=== PATIENT | male | born 1940 | race Caucasian/White ===

== ENCOUNTER → 2019-08-26 12:07 | Outpatient (CLI) | payer MEDICARE, SELFPAY ==
[2019-08-26 14:10] LABS: Blood Urea Nitrogen 18 mg/dl (9-20); Estimated Glomerular Filt Rate 72 ml/min (>60); GFR (African American) 87 ML/MIN (>60)
== END ==
PROVIDERS: Visit Provider Family Medicine
DX: G40.909 Epilepsy, unspecified, not intractable, without status epilepticus (principal)
CPT/HCPCS: 36415; 82565; 84520

== ENCOUNTER → 2019-09-13 11:45 | Outpatient (CLI) | payer MEDICARE, SELFPAY ==
--- NOTE | 2019-09-13 12:03 | CT_ITS ---
PROCEDURE: CT HEAD/BRAIN WO/W CON CLINICAL INDICATION: PARTIAL SEIZURES Nocturnal seizures COMPARISON: No exams were available for comparison TECHNIQUE: IV Contrast: 100ML OPITRAY 320 Axial images obtained. All CT scans at the facility use one or more dose reduction, viz: automated exposure control, ma/kV adjustment per patient size (including targeted exams where dose is matched to indication, i.e. head), or iterative reconstruction technique. FINDINGS: No midline shift, mass effect, intracranial hemorrhage, hydrocephalus, or extra-axial fluid collection is evident. The calvarium has an unremarkable appearance. No mastoid effusion . Mild mucosal thickening ethmoid sinuses IMPRESSION: No acute intracranial findings Dictated by: Aram Christine MD 09/13/2019 18:15 Electronically signed by Aram Christine MD in [place] 09/13/2019 18:15
[2019-09-13 12:23] LABS: Blood Urea Nitrogen 15 mg/dl (9-20); Estimated Glomerular Filt Rate 65 ml/min (>60); GFR (African American) 78 ML/MIN (>60)
== END ==
PROVIDERS: Visit Provider Family Medicine
DX: G40.109 Localization-related (focal) (partial) symptomatic epilepsy and epileptic syndromes with simple partial seizures, not intractable, without status epilepticus (principal)
CPT/HCPCS: 36415; 70470; 82565; 84520; Q9967

== ENCOUNTER → 2019-10-13 09:31 | Outpatient (CLI) | payer MEDICARE, SELFPAY ==
[2019-10-13 09:34] LABS: MANUAL DIFFERENTIAL MANUAL DIFFERENTIAL (MANUAL DIFF)
[2019-10-13 10:18] LABS: Basophils % 0.5 % (0.1-2.0); Eosinophils # 0.3 K/mm3 (0.0-0.4); Eosinophils % 4.6 % (0.1-12.0); Hemoglobin 14.8 g/dL (14.1-18.0); Lymphocytes # 1.4 K/mm3 (0.7-4.5); Lymphocytes % 22.5 % (10-50); Mean Corpuscular HGB Conc 34.5 g/dL (31.8-35.4); Mean Corpuscular Hemoglobin 31.5 pg (27.0-31.2); Mean Corpuscular Volume 91.3 fl (80-94); Mean Platelet Volume 7.8 fl (7.4-10.4); Monocytes # 0.4 K/mm3 (0.1-1.0); Monocytes % 5.9 % (1.7-9.3); Neutrophils % 66.5 % (37.0-80.0); Platelet Count 147 K/mm3 (142-424); Red Blood Count 4.72 M/mm3 (4.60-6.20); Red Cell Distribution Width 14.5 % (11.5-17.5)
[2019-10-13 10:19] LABS: Alanine Aminotransferase 15 U/L (12-78); Albumin Level 4.2 g/dl (3.5-5.0); Albumin/Globulin Ratio 1.4 (1.1-1.8); Alkaline Phosphatase 68 U/L (38-126); Aspartate Amino Transferase 21 U/L (17-59); Bilirubin,Total 0.8 mg/dl (0.2-1.3); Blood Urea Nitrogen 16 mg/dl (9-20); Calcium 9.7 mg/dl (8.4-10.2); Carbon Dioxide 29 mmol/L (22.0-30.0); Chloride 106 mmol/L (98-107); Estimated Glomerular Filt Rate 65 ml/min (>60); GFR (African American) 78 ML/MIN (>60); Globulin 3.1 g/dL (1.3-3.2); Glucose 110 mg/dl (74-100); Sodium 140 mmol/L (136-145); Total Protein,Serum 7.3 g/dl (6.3-8.2)
[2019-10-13 10:51] LABS: Thyroid Stimulating Hormone 0.72 uIU/mL (0.465-4.68)
[2019-10-13 11:05] LABS: Erythrocyte Sedimentation Rate 10 mm/hr (0-20)
[2019-10-13 11:19] LABS: Eosinophils % 6 % (0-3); Lymphocytes % 22 % (10-50); Monocytes % 8 % (2-9); Neutrophils % 64 % (42-76); Platelet Estimate Normal; RBC Morphology Normal; Total Cells Counted 100
[2019-10-14 18:02] LABS: Folate 7.5 ng/mL (>3.0); Vitamin B12 278 pg/mL (232-1245)
== END ==
PROVIDERS: Visit Provider Nurse Practitioner Family
DX: R56.9 Unspecified convulsions (principal); R25.9 Unspecified abnormal involuntary movements; R53.1 Weakness; D64.9 Anemia, unspecified
CPT/HCPCS: 36415; 80053; 82607; 82746; 84443; 85007; 85014; 85018; 85048; 85049; 85651

== ENCOUNTER → 2019-10-18 10:36 | Outpatient (CLI) | payer MEDICARE, SELFPAY ==
--- NOTE | 2019-10-18 10:37 | MR_ITS ---
PROCEDURE: MR HEAD/BRAIN WO/W CON CLINICAL INDICATION: seizures When sleeping at night patient has seizure like jerking. After seizure will have weakness on right side of body. Symptoms [id number]. COMPARISON: CT CT HEAD/BRAIN WO/W CON from 09/13/2019 TECHNIQUE: Routine multiplanar multi echo sequences are performed without and with gadolinium enhancement. FINDINGS: No midline shift, mass effect, intracranial hemorrhage, or hydrocephalus. No enhancing lesions. No evidence of acute infarction. The cerebellopontine angles, cerebellum, and brainstem have an unremarkable appearance. There are involutional changes of age with mild cerebral atrophy and only minimal periventricular T2 hyperintensities. There is mild mucosal thickening of the ethmoid sinuses. No mastoid effusion. Incidental note is made a partial empty sella. The optic chiasm is unremarkable as is the craniocervical junction. There is bulging disc with degenerative disc disease at C2-C3 with narrowing of the canal at that level. There does appear to be some cord impingement with questionable increased T2 signal of the proximal cord. This is on the edge of the imaging not adequately evaluated. The canal at this area measures approximately 7 mm. IMPRESSION: 1. No acute intracranial findings. 2. Canal stenosis at C2-C3 with some mild cord impingement and some questionable increased T2 signal of the cord at the C3 level. This may be better evaluated with dedicated MRI of the cervical spine if clinically warranted. 3. Mild sinus disease Dictated b Aram Christine MD 10/19/2019 11:04 Aram Christine MD in [facility] 10/19/2019 11:04
== END ==
PROVIDERS: PCP Family Medicine; Visit Provider Specialist
DX: G31.84 Mild cognitive impairment of uncertain or unknown etiology (principal); R25.9 Unspecified abnormal involuntary movements; R53.1 Weakness; R56.9 Unspecified convulsions
CPT/HCPCS: 70553; A9576

== ENCOUNTER → 2019-10-31 09:15 | Outpatient (CLI) | payer MEDICARE, SELFPAY ==
--- NOTE | 2019-10-31 09:15 | MR_ITS ---
PROCEDURE: MR CERVICAL SPINE WO CON CLINICAL INDICATION: cervical spinal cord impingement Rt arm jerking and numbness. 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 No prior. COMPARISON: No exams were available for comparison TECHNIQUE: Standard multiplanar multiecho sequences are performed without contrast. 3-D MIP and myelographic images are also rendered and reviewed FINDINGS: There is normal alignment. Motion artifact does obscure fine detailed decreasing the signal to noise ratio. The craniocervical junction has an unremarkable appearance. There is 3 mm anterolisthesis of C2 on C3. Canal stenosis is present at C2-C3 measuring 8 mm with some mild impingement upon the cord anteriorly. C3-C4: There has been prior fusion at C3-C4 with anterior bone plate and artifact noted. There is canal stenosis with hypertrophic changes along the posterior aspect of C3-C4 which is eccentric toward the right. There is canal stenosis with flattening of the cord at this level and there is bilateral lateral recess narrowing. The canal measures approximately 8 mm. There is a small area of increased T2 signal within the central aspect of the cord at this level. This measures approximately 4 mm and could be due to an area of encephalomalacia, gliosis, or a small syrinx. C4-C5: Degenerate disc disease with facet and uncovertebral hypertrophy with bilateral lateral recess and foraminal narrowing. There is canal stenosis at 10 mm. C5-C6: Degenerate disc disease. There is a small left paracentral disc protrusion C6-C7: Degenerate disc disease with bulging disc. There is borderline narrowing of the canal. C7-T1: There is bilateral foraminal narrowing from uncovertebral and facet hypertrophy. There is mild wedging of T1 but appears chronic. IMPRESSION: 1. Somewhat limited exam secondary to motion artifact. 2. C3-C4: There has been prior fusion at C3-C4 with anterior bone plate and artifact noted. There is canal stenosis with hypertrophic changes along the posterior aspect of C3-C4 which is eccentric toward the right. There is canal stenosis with flattening of the cord at this level and there is bilateral lateral recess narrowing. The canal measures approximately 8 mm. There is a small area of increased T2 signal within the central aspect of the cord at this level. This measures approximately 4 mm and could be due to an area of encephalomalacia, gliosis, or a small syrinx. 3. C4-C5: Degenerate disc disease with facet and uncovertebral hypertrophy with bilateral lateral recess and foraminal narrowing. There is canal stenosis at 10 mm. 4. C5-C6: Degenerate disc disease. There is a small left paracentral disc protrusion 5. C6-C7: Degenerate disc disease with bulging disc. There is borderline narrowing of the canal. 6. C7-T1: There is bilateral foraminal narrowing from uncovertebral and facet hypertrophy. There is mild wedging of T1 but appears chronic. Dictated by: Aram Christine MD 11/01/2019 12:49 Aram Christine MD in [place] 11/01/2019 12:49
== END ==
PROVIDERS: PCP Family Medicine; Visit Provider Specialist
DX: G95.20 Unspecified cord compression (principal); R90.89 Other abnormal findings on diagnostic imaging of central nervous system; M54.2 Cervicalgia
CPT/HCPCS: 72141; 76376

== ENCOUNTER → 2021-01-03 09:35 | Outpatient (CLI) | payer MEDICARE, SELFPAY ==
--- NOTE | 2021-01-03 09:44 | CT_ITS ---
PROCEDURE: CT ABDOMEN PELVIS WO CON CLINICAL INDICATION: ABD PAIN COMPARISON: No exams were available for comparison TECHNIQUE: Axial images obtained with sagittal and coronal reformats. All CT scans at the facility use one or more dose reduction, viz: automated exposure control, ma/kV adjustment per patient size (including targeted exams where dose is matched to indication, i.e. head), or iterative reconstruction technique. FINDINGS: LOWER THORAX: There is a 4 mm nodule in the right lower lobe in the lung base and a 4 mm subpleural nodule in the left lower lobe anteriorly. Minimal thickening of the pericardium anteriorly. There is an enlarged retrocrural lymph node on the right at 1.5 1 cm ABDOMEN & PELVIS: No focal liver lesion on this unenhanced exam. There is a 10 x 6 mm hypodensity in the spleen inferiorly and a 6 mm hypodensity in the spleen posteriorly. There is mild splenomegaly at 14 cm. The adrenal glands and pancreas have an unremarkable unenhanced appearance. There is mild bilateral hydronephrosis and hydroureter. No definite ureteral or renal calculi are evident. There is a small right renal cyst laterally at 15 mm. There is moderate retroperitoneal adenopathy with nodes measuring 2 2.8 x 2.3 cm in the aortocaval region There is a moderate amount of retained colonic feces with colonic diverticulosis in the sigmoid colon. There is a small right inguinal hernia containing. No evidence of appendicitis. The prostate is enlarged measuring 8.7 x 7.5 x 5.6 cm cephalad caudad, transverse, and AP. The largest component of the prostate is along its superior aspect and is slightly displacing the urinary bladder anteriorly and to the right causing bilateral distal ureteral obstruction. This could even be related to a bladder cancer extending posteriorly. There are few small lymph nodes in the Yanna prostatic region. There is an enlarged node in the presacral region at 2.3 1.3 cm. Diffuse ill-defined blastic involvement pelvis and entire lumbar spine as well as multiple ribs consistent with metastatic disease. 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 There is compression or invasion of the urinary bladder with bilateral hydronephrosis. The bladder is not significantly distended. Alternatively, there could be a neoplasm of the urinary bladder as well. Suggest urology consult for further evaluation. There is mild retroperitoneal and pelvic adenopathy consistent with lymph node metastasis. Hypodensities of the spleen which are nonspecific. Stability may be confirmed with continued follow-up Constipation Dictated by: Aram Christine MD 01/04/2021 09:44 Aram Christine MD in [place] 01/04/2021 09:44
== END ==
PROVIDERS: PCP Family Medicine; Visit Provider Family Medicine
DX: R10.9 Unspecified abdominal pain (principal)
CPT/HCPCS: 74176

== ENCOUNTER 2021-02-18 08:14 | Outpatient (CLI) | payer MEDICARE, SELFPAY ==
[2021-02-18] VITALS (12 sets, daily range): BP systolic 101–131; BP diastolic 45–75; PULSE 68–74; RESP 20–72; TEMP 36.1–36.9; O2SAT 95–97; BMI 21.8
[2021-02-18 09:07] LABS: Hematocrit 20.4 % (42.0-52.0); Hemoglobin 6.6 g/dL (14.1-18.0)
[2021-02-18 14:28] LABS: Hematocrit 22.7 % (42.0-52.0)
[2021-02-18 14:38] LABS: Hemoglobin 7.8 g/dL (14.1-18.0)
--- NOTE | 2021-02-18 15:34 | PC.NURSE ---
Angely Tee called RN at 0842 to report HGB of 6.6 and HCT 20.4. RN repeated and verified pt name, , and lab value. Results called to Matt Patino MD. No new orders recieved.
== END 2021-02-18 14:30 | disposition home or self-care (01) ==
LOC: INF 08:16
PROVIDERS: PCP Family Medicine; Visit Provider Internal Medicine Medical Oncology
DX: C61 Malignant neoplasm of prostate (principal)
CPT/HCPCS: 36415; 36430; 85014; 85018; 86850; P9016

== ENCOUNTER → 2021-02-25 11:53 | Outpatient (CLI) | payer MEDICARE, SELFPAY ==
[2021-02-25 12:20] LABS: Basophils % 0.5 % (0.1-2.0); Eosinophils # 0.1 K/mm3 (0.0-0.4); Eosinophils % 3.6 % (0.1-12.0); Hematocrit 25.1 % (42.0-52.0); Lymphocytes # 0.9 K/mm3 (0.7-4.5); Lymphocytes % 25.9 % (10-50); Mean Corpuscular HGB Conc 31.9 g/dL (31.8-35.4); Mean Corpuscular Hemoglobin 29.7 pg (27.0-31.2); Mean Corpuscular Volume 93.3 fl (80-94); Mean Platelet Volume 7.3 fl (7.4-10.4); Monocytes # 0.3 K/mm3 (0.1-1.0); Monocytes % 8.1 % (1.7-9.3); Neutrophils # 2.2 K/mm3 (1.8-7.8); Neutrophils % 61.9 % (37.0-80.0); Platelet Count 187 K/mm3 (142-424); Red Blood Count 2.69 M/mm3 (4.60-6.20); Red Cell Distribution Width 18.7 % (11.5-17.5); White Blood Count 3.6 K/mm3 (4.8-10.8)
== END ==
PROVIDERS: Visit Provider Internal Medicine Medical Oncology
DX: C61 Malignant neoplasm of prostate (principal)
CPT/HCPCS: 36415; 85025

== ENCOUNTER → 2021-03-28 12:48 | Outpatient (CLI) | payer MEDICARE, SELFPAY ==
[2021-03-28 13:19] LABS: Basophils % 0.7 % (0.1-2.0); Eosinophils # 0.2 K/mm3 (0.0-0.4); Eosinophils % 5.2 % (0.1-12.0); Hematocrit 23.7 % (42.0-52.0); Hemoglobin 7.4 g/dL (14.1-18.0); Lymphocytes # 0.7 K/mm3 (0.7-4.5); Lymphocytes % 22.8 % (10-50); Mean Corpuscular HGB Conc 31.3 g/dL (31.8-35.4); Mean Corpuscular Hemoglobin 30.2 pg (27.0-31.2); Mean Corpuscular Volume 96.5 fl (80-94); Mean Platelet Volume 7.9 fl (7.4-10.4); Monocytes # 0.2 K/mm3 (0.1-1.0); Monocytes % 7.1 % (1.7-9.3); Neutrophils # 2.1 K/mm3 (1.8-7.8); Neutrophils % 64.2 % (37.0-80.0); Platelet Count 229 K/mm3 (142-424); Red Blood Count 2.46 M/mm3 (4.60-6.20); Red Cell Distribution Width 16.6 % (11.5-17.5); White Blood Count 3.3 K/mm3 (4.8-10.8)
== END ==
PROVIDERS: PCP Family Medicine; Visit Provider Internal Medicine Medical Oncology
DX: C61 Malignant neoplasm of prostate (principal)
CPT/HCPCS: 36415; 85025

== ENCOUNTER 2021-03-31 08:35 | Outpatient (CLI) | payer MEDICARE, SELFPAY ==
[2021-03-31] VITALS (7 sets, daily range): BP systolic 129–157; BP diastolic 66–76; PULSE 66–74; RESP 16–18; TEMP 36.8–37.4; O2SAT 98–100; BMI 21.7
--- NOTE | 2021-03-31 12:40 | PC.NURSE ---
Pt wouldn't stay for 1 hour post vital. He was concerned it it would snow and he'd have trouble getting home. [place] [facility] [place]
== END 2021-03-31 12:40 | disposition home or self-care (01) ==
LOC: INF 08:36
PROVIDERS: PCP Family Medicine; Visit Provider Internal Medicine Medical Oncology
DX: D64.9 Anemia, unspecified (principal)
CPT/HCPCS: 36430; 86850; P9016

== ENCOUNTER → 2021-04-08 13:23 | Outpatient (CLI) | payer MEDICARE, SELFPAY ==
[2021-04-08 13:59] LABS: Basophils % 0.6 % (0.1-2.0); Eosinophils # 0.1 K/mm3 (0.0-0.4); Eosinophils % 3.6 % (0.1-12.0); Hematocrit 28.3 % (42.0-52.0); Hemoglobin 9.2 g/dL (14.1-18.0); Lymphocytes # 0.7 K/mm3 (0.7-4.5); Lymphocytes % 19.4 % (10-50); Mean Corpuscular HGB Conc 32.6 g/dL (31.8-35.4); Mean Corpuscular Hemoglobin 30.5 pg (27.0-31.2); Mean Corpuscular Volume 93.4 fl (80-94); Mean Platelet Volume 7.6 fl (7.4-10.4); Monocytes # 0.4 K/mm3 (0.1-1.0); Monocytes % 9.6 % (1.7-9.3); Neutrophils # 2.5 K/mm3 (1.8-7.8); Neutrophils % 66.8 % (37.0-80.0); Platelet Count 275 K/mm3 (142-424); Red Blood Count 3.03 M/mm3 (4.60-6.20); Red Cell Distribution Width 15.9 % (11.5-17.5); White Blood Count 3.8 K/mm3 (4.8-10.8)
== END ==
PROVIDERS: PCP Family Medicine; Visit Provider Internal Medicine Medical Oncology
DX: C61 Malignant neoplasm of prostate (principal)
CPT/HCPCS: 36415; 85025

== ENCOUNTER 2021-05-17 08:24 | Outpatient (CLI) | payer MEDICARE, SELFPAY ==
[2021-05-17 08:24] VITALS: BMI 20.2
[2021-05-17 09:09] LABS: Basophils % 0.5 % (0.1-2.0); Eosinophils # 0.1 K/mm3 (0.0-0.4); Eosinophils % 1.7 % (0.1-12.0); Hematocrit 31.8 % (42.0-52.0); Hemoglobin 10.1 g/dL (14.1-18.0); Lymphocytes # 0.7 K/mm3 (0.7-4.5); Lymphocytes % 12.2 % (10-50); Mean Corpuscular HGB Conc 31.8 g/dL (31.8-35.4); Mean Corpuscular Volume 94.3 fl (80-94); Mean Platelet Volume 7.9 fl (7.4-10.4); Monocytes # 0.4 K/mm3 (0.1-1.0); Monocytes % 6.4 % (1.7-9.3); Neutrophils # 4.6 K/mm3 (1.8-7.8); Neutrophils % 79.3 % (37.0-80.0); Platelet Count 231 K/mm3 (142-424); Red Blood Count 3.38 M/mm3 (4.60-6.20); Red Cell Distribution Width 15.7 % (11.5-17.5); White Blood Count 5.8 K/mm3 (4.8-10.8)
--- NOTE | 2021-05-17 09:30 | PC.NURSE ---
NO TRANSFUSION NEEDED BASED ON ORDERS;
== END 2021-05-17 09:30 | disposition home or self-care (01) ==
LOC: INF 08:27
PROVIDERS: PCP Family Medicine; Visit Provider Internal Medicine Medical Oncology
DX: D50.0 Iron deficiency anemia secondary to blood loss (chronic) (principal)
CPT/HCPCS: 85025

== ENCOUNTER → 2021-06-18 13:51 | Outpatient (CLI) | payer MEDICARE, SELFPAY ==
[2021-06-18 14:55] LABS: Basophils % 0.6 % (0.1-2.0); Eosinophils # 0.1 K/mm3 (0.0-0.4); Eosinophils % 1.3 % (0.1-12.0); Hematocrit 25.7 % (42.0-52.0); Lymphocytes # 0.4 K/mm3 (0.7-4.5); Mean Corpuscular HGB Conc 31.3 g/dL (31.8-35.4); Mean Corpuscular Hemoglobin 30.5 pg (27.0-31.2); Mean Corpuscular Volume 97.6 fl (80-94); Mean Platelet Volume 8.1 fl (7.4-10.4); Monocytes # 0.3 K/mm3 (0.1-1.0); Monocytes % 6.6 % (1.7-9.3); Neutrophils # 3.3 K/mm3 (1.8-7.8); Neutrophils % 82.5 % (37.0-80.0); Platelet Count 270 K/mm3 (142-424); Red Blood Count 2.64 M/mm3 (4.60-6.20); Red Cell Distribution Width 17.8 % (11.5-17.5)
[2021-06-18 15:14] LABS: Alanine Aminotransferase 8 U/L (12-78); Albumin Level 2.8 g/dl (3.5-5.0); Albumin/Globulin Ratio 1.1 (1.1-1.8); Alkaline Phosphatase 571 U/L (38-126); Anion Gap 6.6 mEq/L (5-15); Aspartate Amino Transferase 25 U/L (17-59); Blood Urea Nitrogen 25 mg/dl (9-20); Calcium 7.3 mg/dl (8.4-10.2); Carbon Dioxide 26 mmol/L (22.0-30.0); Chloride 107 mmol/L (98-107); Estimated Glomerular Filt Rate 109 ml/min (>60); GFR (African American) 132 ML/MIN (>60); Globulin 2.6 g/dL (1.3-3.2); Glucose 117 mg/dl (74-100); Potassium 5.6 mmoL/L (3.5-5.1); Sodium 134 mmol/L (136-145); Total Protein,Serum 5.4 g/dl (6.3-8.2)
== END ==
PROVIDERS: Visit Provider Internal Medicine Medical Oncology
DX: C61 Malignant neoplasm of prostate (principal)
CPT/HCPCS: 36415; 80053; 85025

== ENCOUNTER 2021-08-02 08:08 | Outpatient (CLI) | payer MEDICARE, SELFPAY ==
[2021-08-02] VITALS (19 sets, daily range): BP systolic 88–131; BP diastolic 42–65; PULSE 63–80; RESP 16–18; TEMP 36.6–37.2; O2SAT 98–99; BMI 27.0
[2021-08-02 08:42] LABS: Hematocrit 22.2 % (42.0-52.0)
[2021-08-02 08:43] LABS: Hemoglobin 6.8 g/dL (14.1-18.0)
--- NOTE | 2021-08-02 10:28 | PC.NURSE ---
1023 - BLOOD TRANSFUSION STARTED AT 100 ML/HR AT THIS TIME.
--- NOTE | 2021-08-02 11:04 | PC.NURSE ---
1053-INCREASED RATE TO 150 ML/HR AT THIS TIME.
--- NOTE | 2021-08-02 11:30 | PC.NURSE ---
1123-INCREASED RATE TO 200 ML/HR AT THIS TIME.
--- NOTE | 2021-08-02 12:31 | PC.NURSE ---
RATE WAS INCREASED TO 250 ML/HR AT 1153.
--- NOTE | 2021-08-02 12:58 | PC.NURSE ---
1255-BLOOD TRANSFUSION INCREASED TO 100 ML/HR AT THIS TIME.
--- NOTE | 2021-08-02 14:34 | PC.NURSE ---
1325-INCREASED RATE TO 150 ML/HR AT THIS TIME.
--- NOTE | 2021-08-02 14:37 | PC.NURSE ---
1355-INCREASED RATE TO 200 ML/HR AT THIS TIME.
--- NOTE | 2021-08-02 15:23 | PC.NURSE ---
RATE INCREASED TO 250 ML/HR AT 1425.
[2021-08-02 16:22] LABS: Hematocrit 28.9 % (42.0-52.0)
[2021-08-02 16:37] LABS: Hemoglobin 9.2 g/dL (14.1-18.0)
== END 2021-08-02 16:10 | disposition home or self-care (01) ==
LOC: INF 08:10
PROVIDERS: PCP Family Medicine; Visit Provider Internal Medicine Medical Oncology
DX: D64.9 Anemia, unspecified (principal)
CPT/HCPCS: 36430; 85014; 85018; 86850; P9016

== ENCOUNTER → 2021-08-05 11:51 | Outpatient (CLI) | payer MEDICARE, SELFPAY ==
[2021-08-05 12:23] LABS: Basophils % 0.4 % (0.1-2.0); Eosinophils % 1.3 % (0.1-12.0); Hematocrit 29.8 % (42.0-52.0); Hemoglobin 9.6 g/dL (14.1-18.0); Lymphocytes # 0.4 K/mm3 (0.7-4.5); Lymphocytes % 14.2 % (10-50); Mean Corpuscular HGB Conc 32.1 g/dL (31.8-35.4); Mean Corpuscular Hemoglobin 32.3 pg (27.0-31.2); Mean Corpuscular Volume 100.5 fl (80-94); Mean Platelet Volume 8.6 fl (7.4-10.4); Monocytes # 0.3 K/mm3 (0.1-1.0); Monocytes % 8.6 % (1.7-9.3); Neutrophils # 2.4 K/mm3 (1.8-7.8); Neutrophils % 75.6 % (37.0-80.0); Platelet Count 171 K/mm3 (142-424); Red Blood Count 2.97 M/mm3 (4.60-6.20); Red Cell Distribution Width 19.1 % (11.5-17.5); White Blood Count 3.1 K/mm3 (4.8-10.8)
== END ==
PROVIDERS: Visit Provider Internal Medicine Medical Oncology
DX: C61 Malignant neoplasm of prostate (principal); D64.9 Anemia, unspecified
CPT/HCPCS: 36415; 85025

== ENCOUNTER → 2021-08-19 11:57 | Outpatient (CLI) | payer MEDICARE, OTHER, SELFPAY ==
[2021-08-19 13:04] LABS: Alanine Aminotransferase 7 U/L (12-78); Albumin Level 2.7 g/dl (3.5-5.0); Alkaline Phosphatase 667 U/L (38-126); Anion Gap 7.1 mEq/L (5-15); Aspartate Amino Transferase 24 U/L (17-59); Bilirubin,Total 0.8 mg/dl (0.2-1.3); Blood Urea Nitrogen 20 mg/dl (9-20); Calcium 8.4 mg/dl (8.4-10.2); Carbon Dioxide 31 mmol/L (22.0-30.0); Chloride 101 mmol/L (98-107); Estimated Glomerular Filt Rate 130 ml/min (>60); GFR (African American) 157 ML/MIN (>60); Globulin 2.6 g/dL (1.3-3.2); Glucose 103 mg/dl (74-100); Potassium 4.1 mmoL/L (3.5-5.1); Sodium 135 mmol/L (136-145); Total Protein,Serum 5.3 g/dl (6.3-8.2)
== END ==
PROVIDERS: PCP Family Medicine; Visit Provider Internal Medicine Medical Oncology
DX: Z01.818 Encounter for other preprocedural examination (principal); C61 Malignant neoplasm of prostate; C79.51 Secondary malignant neoplasm of bone
CPT/HCPCS: 36415; 80053

== ENCOUNTER → 2021-08-20 09:55 | Outpatient (CLI) | payer MEDICARE, OTHER, SELFPAY ==
--- NOTE | 2021-08-20 09:59 | CT_ITS ---
FINAL REPORT CLINICAL HISTORY: NEOPLASM FOR PROSTATE,NEOPLASM OF BONE FINDINGS: CT CHEST W/CONTRAST Axial CT images of the chest were obtained with contrast. Coronal reformatted images were also obtained. This study was performed with techniques to keep radiation doses as low as reasonably achievable, (ALARA). Individualized dose reduction techniques using automated exposure control or adjustment of mA and/or KV according to the patient's size were employed. There is no evidence of mediastinal or hilar mass or adenopathy. No axillary mass or adenopathy is identified. On lung window images, there are mild changes of emphysema. There is mild atelectasis or scarring in the lung bases. There are small pleural effusions. There is a 4 mm nodule in the region of the minor fissure and also several small nodules in the region of the left major fissure which favor intra fissural lymph nodes. There is widespread lytic and sclerotic bony metastatic disease on the bone window images. 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 4 mm nodule in the region of the minor fissure, also several small nodules in the region of the left major fissure which favor intra fissural lymph nodes. Reviewed, Interpreted and Dictated by Orlando Alarcon III, MD Transcribed by Elizabeth Suero Authenticated and [facility]
--- NOTE | 2021-08-20 09:59 | CT_ITS ---
FINAL REPORT CLINICAL HISTORY: NEOPLASM FOR PROSTATE,NEOPLASM OF BONE COMPARISON: January 03, 2021 FINDINGS: CT OF THE ABDOMEN AND PELVIS WITH CONTRAST Axial CT images of the abdomen and pelvis were obtained after the administration of oral and iv contrast. Coronal reformatted images were also obtained and reviewed.This study was performed with techniques to keep radiation doses as low as reasonably achievable (ALARA). Individualized dose reduction techniques using automated exposure control or adjustment of mA and/or kV according to the patient's size were employed. Abdomen: The heart is normal in size. There is a less than 1 cm cyst in the medial liver. There is no evidence of biliary ductal dilatation. There is a probable small splenic cyst. No adrenal mass is present. The pancreas has an unremarkable appearance. There are several small renal cysts. The aorta is normal in caliber. There is no free fluid or adenopathy. There is a large amount of retained stool. Pelvis: There are new bilateral ureteral stents with improved bilateral hydronephrosis. There has been improvement in the size of the prostate measuring 4 cm transverse and was previously 5.8 cm transverse. There is also marked improvement in a mass at the base of the bladder measuring 3.5 x 1.9 cm in was previously 7.4 x 3.9 cm. There is no evidence of bowel obstruction. There are postoperative changes in the right femur. There is widespread lytic and sclerotic bony metastatic disease which is significantly progressed. IMPRESSION: Improvement in size of the prostate and marked improvement in size of a mass in the base of the bladder. Widespread lytic and sclerotic bony metastatic disease which is significantly progressed. New bilateral ureteral stents with improved bilateral hydronephrosis. Reviewed, Interpreted and Dictated by Orlando Alarcon III, MD Transcribed by Elizabeth Suero Authenticated and [facility]
== END ==
PROVIDERS: PCP Family Medicine; Visit Provider Internal Medicine Medical Oncology
DX: C61 Malignant neoplasm of prostate (principal); C79.51 Secondary malignant neoplasm of bone
CPT/HCPCS: 71260; 74177; Q9967